=== PATIENT | male | born 1935 | race Hispanic/Latino ===

== ENCOUNTER 2018-04-11 10:40 | Emergency (ER) | payer OTHER ==
[~2018-04-11] VITALS: Ht 167.6 cm; Wt 53.1 kg
[2018-04-11] MEDS: SODIUM CHLORIDE 0.9% 500ML 500 ML IV STA (11:43)
[2018-04-11 11:46] LABS: BASOPHILS # (AUTO) 0.1 (0.0-0.1); BASOPHILS % 0.5 % (0.0-1.0); EOSINOPHILS # (AUTO) 0.1 (0.0-0.4); EOSINOPHILS % 0.9 % (0.0-6.0); HEMATOCRIT 36.6 % (38.2-49.6); HEMOGLOBIN 12.2 g/dL (14.0-18.0); LYMPHOCYTES # (AUTO) 1.4 (1.0-3.2); LYMPHOCYTES % 12.9 % (18.0-39.1); MEAN CORPUSCULAR HEMOGLOBIN 31.4 pg (28-32); MEAN CORPUSCULAR HGB CONC 33.3 g/dL (31-35); MEAN CORPUSCULAR VOLUME 94.3 fL (81-99); MONOCYTES % 9.6 % (4.4-11.3); NEUTROPHILS # (AUTO) 7.9 (2.1-6.9); NEUTROPHILS % 75.3 % (38.7-80.0); PLATELET COUNT 249 x10e3/uL (140-360); RED BLOOD COUNT 3.88 x10e6/uL (4.3-5.7); RED CELL DISTRIBUTION WIDTH 16.9 % (11.7-14.4)
[2018-04-11 12:04] LABS: ALANINE AMINOTRANSFERASE 8 IU/L (0-55); ALBUMIN 3.1 g/dL (3.5-5.0); ALBUMIN/GLOBULIN RATIO 0.8 (0.8-2.0); ALKALINE PHOSPHATASE 92 IU/L (40-150); ANION GAP 11.5 mmol/L (8-16); BLOOD UREA NITROGEN 17 mg/dL (7-26); BUN/CREATININE RATIO 20 (6-25); CALCIUM 9.6 mg/dL (8.4-10.2); CARBON DIOXIDE 28 mmol/L (22-29); CHLORIDE 102 mmol/L (98-107); CREATININE, SERUM 0.86 mg/dL (0.72-1.25); EST GLOMERULAR FILTRATION RATE > 60 ML/MIN (60-); GLUCOSE 110 mg/dL (74-118); MAGNESIUM 1.9 MG/DL (1.3-2.1); POTASSIUM 3.5 mmol/L (3.5-5.1); SODIUM 138 mmol/L (136-145)
[2018-04-11 12:08] LABS: CLARITY,URINE CLOUDY (CLEAR)
[2018-04-11 12:09] LABS: BILIRUBIN,URINE 1+ (NEGATIVE); KETONES,URINE TRACE (NEGATIVE); LEUKOCYTE ESTERASE ,URINE 2+ (NEGATIVE); NITRITE,URINE NEGATIVE (NEGATIVE); PROTEIN,URINE DIPSTICK 1+ (NEGATIVE); URINE UROBILINOGEN 1 mg/dL (0.2 - 1)
[2018-04-11 12:10] LABS: BACTERIA,URINE MODERATE /HPF; COLOR,URINE AMBER (YELLOW); EPITHELIAL CELLS,URINE FEW /LPF; RENAL EPITHELIAL CELLS,URINE RARE; WBC,URINE (MAN) 21-50 /HPF (0-5)
[2018-04-11 12:12] LABS: CREATINE KINASE MB 0.6 ng/mL (0-5.0)
--- NOTE | 2018-04-11 12:13 | Diagnostic Imaging Report ---
PROCEDURE: X-RAY CHEST, TWO VIEWS COMPARISON: None. INDICATIONS: LOW BLOOD PRESSURE FINDINGS: The patient is rotated to the right. The lungs are reasonably well inflated. No focal airspace consolidation, pleural effusion, or pneumothorax. Diffuse mild prominence of the pulmonary interstitium likely age-related fibrotic changes. Tortuous thoracic aorta with heart size at the upper limits of normal. No acute osseous abnormalities. Degenerative changes of the thoracic spine and shoulders. CONCLUSION: No acute cardiopulmonary abnormality. Dictated by: Raymond Ohara M.D. on 04/11/2018 at 12:16 Electronically approved by: Raymond Ohara M.D. on 04/11/2018 at 12:16
[2018-04-11] MEDS ORDERED: CEFTRIAXONE SOD 1 GM VIAL ONE (13:08)
[2018-04-11] MEDS: CEFTRIAXONE SOD 1 GM VIAL IV SCH (13:10)
== END 2018-04-11 13:44 | disposition home or self-care (01) ==
LOC: ER 10:40
DX: R50.9 Fever, unspecified (principal); N30.91 Cystitis, unspecified with hematuria; N41.0 Acute prostatitis
CPT/HCPCS: 36415; 71046; 80053; 81001; 82550; 82553; 83605; 83735; 84484; 85025; 87040; 87086; 87186; 93005; 99284; J0696; J7040